=== PATIENT | female | born 1980 | race Caucasian/White ===

== ENCOUNTER 2020-06-04 14:16 | Emergency (ER) | payer SELFPAY ==
[~2020-06-04] VITALS: Ht 152.4 cm; Wt 72.7 kg
[2020-06-04 14:28] VITALS: Ht 152.4 cm; Wt 72.7 kg
[2020-06-04] MEDS ORDERED: ZOLOFT50 MG PO (14:30)
[2020-06-04] MEDS ORDERED: LISINOPRIL10 MG PO (14:31)
[2020-06-04] MEDS ORDERED: [UNRECOGNIZED DRUG - REMARK] (14:31)
[2020-06-04 15:29] LABS: BILIRUBIN NEGATIVE (NEGATIVE); GLUCOSE NEGATIVE (NEGATIVE); HCG URINE NEGATIVE (NEGATIVE); KETONE NEGATIVE (NEGATIVE); NITRITE NEGATIVE (NEGATIVE); SPECIFIC GRAVITY 1.015 (1.005-1.020); UROBILINOGEN NORMAL (NORMAL)
[2020-06-04 15:50] LABS: HEMATOCRIT 33.4 % (36.0-48.0); HEMOGLOBIN 10.1 g/dL (12-16); LYMPHOCYTES 18.7 % (15-50); MCHC 30.2 g/dL (31.0-37.0); MCV 76.1 fL (80.0-100.0); MEAN PLATELET VOLUME 8.8 fL (7.4-10.4); NEUTROPHILS 72.3 % (40-80); PLATELET COUNT 224 10x3/uL (130-400); RBC 4.39 10x6/uL (4.00-5.40); RDW 15.9 % (11.5-14.5); WBC 7.7 10x3/uL (4.8-10.8)
[2020-06-04 16:30] LABS: CALC OSMOLALITY 269 mosm/kg (275-300); CALCIUM 8.2 mg/dL (8.5-10.1); CARBON DIOXIDE 25.2 mmol/L (21.0-32.0); CHLORIDE - SERUM 103 mmol/L (98-107); CREATININE - SERUM 0.8 mg/dL (0.6-1.3); GLUCOSE 103 mg/dL (74-106); POTASSIUM - SERUM 3.8 mmol/L (3.5-5.1); SODIUM 135 mmol/L (136-145); UREA NITROGEN 13 mg/dL (7-18); eGFR NON AFRICAN AMERICAN 85 mL/min (90-120)
[2020-06-04 16:39] LABS: ALBUMIN 2.4 g/dL (3.4-5.0); ALKALINE PHOSPHATASE 92 U/L (30-120); ALT (SGPT) 19 U/L (10-68); AMYLASE - SERUM 36 U/L (25-115); BILIRUBIN - TOTAL 0.29 mg/dL (0.2-1.3); LIPASE 352 U/L (73-393); PROTEIN - SERUM 7.2 g/dL (6.4-8.2)
[2020-06-04 16:40] LABS: TROPONIN-I < 0.017 ng/mL (0.000-0.060)
[2020-06-04] MEDS ORDERED: PROTONIX20 MG PO (18:10)
[2020-06-04 18:36] VITALS: BP 137/82
== END 2020-06-04 18:41 | disposition home or self-care (01) ==
LOC: D.ER 14:16
PROVIDERS: Family Medicine
DX: R10.13 Epigastric pain (principal); I10 Essential (primary) hypertension